=== PATIENT | female | born 1990 | race Caucasian/White ===

== ENCOUNTER → 2020-03-05 | Outpatient (CLI) | payer OTHER ==
[~2020-03-05] MED LIST: COLACE 100MG C100 MG PO; HYDROCODON-ACE1 EAC6 PO; IBU600 MG PO; PRENATAL VITAM1 EAC3 PO; TRANDATE 100 M100 MG PO
[2020-03-05 09:48] LABS: HEMOGLOBIN 12.5 gm/dl (12.3-15.3); RED BLOOD COUNT 4.16 M/UL (4.00-5.10)
[2020-03-05 10:09] LABS: URINE TOTAL PROTEIN 14 mg/dl
[2020-03-05 10:43] LABS: BUN/CREATININE RATIO 13 (0-10)
== END ==
LOC: LAB 09:12
PROVIDERS: Obstetrics & Gynecology
DX: O10.919 Unspecified pre-existing hypertension complicating pregnancy, unspecified trimester (principal)
CPT/HCPCS: 36415; 80053; 83615; 84156; 84550; 85025; 85379; 85384; 85610; 85730

== ENCOUNTER 2020-03-24 07:45 | Inpatient (IN) | payer OTHER ==
[~2020-03-24] VITALS: Ht 177.8 cm; Wt 98.9 kg
[2020-03-24 08:28] LABS: HEMOGLOBIN 13.2 gm/dl (12.3-15.3); RED BLOOD COUNT 4.32 M/UL (4.00-5.10)
[2020-03-24] MEDS ORDERED: TRANDATE 100 M100 MG PO (08:32)
[2020-03-24] MEDS ORDERED: PRENATAL VITAM1 EAC3 PO (08:32)
[2020-03-24] MEDS ORDERED: IBU600 MG PO (09:02)
[2020-03-24] MEDS ORDERED: HYDROCODON-ACE1 EAC6 PO (09:02)
[2020-03-24] MEDS ORDERED: COLACE 100MG C100 MG PO (09:02)
[2020-03-25 06:51] LABS: HEMOGLOBIN 12.3 gm/dl (12.3-15.3)
== END 2020-03-25 12:35 | disposition home or self-care (01) | DRG 787 ==
LOC: OB 07:45
PROVIDERS: Obstetrics & Gynecology; ADMIT Obstetrics & Gynecology
PROC: 3E0234Z Introduction of Serum, Toxoid and Vaccine into Muscle, Percutaneous Approach (ICD-10-PCS; 2020-03-24)
PROC: 10D00Z1 Extraction of Products of Conception, Low, Open Approach (ICD-10-PCS; principal; 2020-03-24 09:21)
DX: O30.033 Twin pregnancy, monochorionic/diamniotic, third trimester (principal); O10.92 Unspecified pre-existing hypertension complicating childbirth; O34.211 Maternal care for low transverse scar from previous cesarean delivery; N85.8 Other specified noninflammatory disorders of uterus; Z3A.37 37 weeks gestation of pregnancy; Z37.2 Twins, both liveborn; Z23 Encounter for immunization
CPT/HCPCS: 36415; 81001; 82800; 85014; 85018; 85025; 90471; 90715; C9113; J0690; J1170; J2274; J2300; J2405; J2550; J2590; J3010; J7120